=== PATIENT | male | born 1960 | race Caucasian/White ===

== ENCOUNTER 2018-05-01 14:53 | Outpatient (CLI) | payer OTHER ==
--- NOTE | 2018-05-01 21:50 | MRI Report ---
Reason: LUMBAR RADICULOPATHY Procedure Date: 05/01/2018 Accession Number: [id number] / [id number] Procedure: MRI - Lumbar Spine W/O CPT Code: FULL RESULT: EXAM: MRI LUMBAR SPINE WITHOUT CONTRAST EXAM DATE: 05/01/2018 03:34 PM. CLINICAL HISTORY: Lumbar radiculopathy. COMPARISON: Lumbar radiograph 01/21/2018. TECHNIQUE: Multiplanar, multisequence T1-weighted and fluid-sensitive sequences of the lumbar spine from T12 to S1 without contrast. Other: None. FINDINGS: Spinal Canal: The conus terminates at L1-L2. The conus medullaris and cauda equina are unremarkable. Alignment: No scoliosis or spondylolisthesis. Bone Marrow: 6 [id number] lumbar type vertebrae demonstrated. Transitional lumbosacral anatomy with a lumbarized S1. Left S1 transverse process fused with the sacral ala. No gross fractures or bone lesions. No bone marrow replacement. Disk Levels/Facets: T12-L1: Disk desiccation. No significant canal or foraminal narrowing. L1-L2: Disk desiccation. Mild facet arthropathy. No significant canal or foraminal narrowing. L2-L3: Annular bulge. Mild facet arthropathy. Mild canal narrowing. No significant foraminal narrowing. L3-L4: Mild facet arthropathy. Annular bulge. No significant canal narrowing. Mild foraminal narrowing. L4-L5: Disk desiccation. Annular bulge. Bilateral facet arthropathy. Mild to moderate bilateral foraminal narrowing. Mild subarticular narrowing. Mild canal narrowing. L5-S1: Bilateral facet arthropathy. Annular bulge. Mild foraminal narrowing. No apparent impingement of the L5 or S1 nerve roots. Musculature: Normal. No edema or fatty atrophy. Other: The partially visualized retroperitoneum is unremarkable. IMPRESSION: 1. Transitional lumbosacral anatomy with a lumbarized S1. 2. At L2-L3, annular bulge with mild canal narrowing. 3. At L3-L4, mild foraminal narrowing secondary to annular bulge. 4. At L4-L5, mild canal narrowing. Mild subarticular narrowing. Mild to moderate bilateral foraminal narrowing. No apparent impingement of the L4 or L5 nerve roots. 5. At L5-S1, mild foraminal narrowing. Comment: The following findings are so common in adults without low back pain that while we report their presence, they must be interpreted with caution and in the context of the clinical situation. (Reference Tyron et al, Spine 2001) Prevalence of findings in patients without low back pain: Disk degeneration (any evidence): 92% Disk desiccation/T2 signal loss: 83% Disk height loss: 56% Disk bulge: 64% Disk protrusion: 32% Annular tear/high intensity zone: 38% RADIA
== END 2018-05-01 14:54 | disposition home or self-care (01) ==
LOC: DI 14:53
PROVIDERS: ATTEND Physician Assistant Medical
DX: M51.16 Intervertebral disc disorders with radiculopathy, lumbar region (principal); M48.061 Spinal stenosis, lumbar region without neurogenic claudication
CPT/HCPCS: 72148

== ENCOUNTER 2018-10-14 20:22 | Emergency (ER) | payer OTHER ==
[2018-10-14] MEDS ORDERED: BUFFERED LIDOCAINE 10 ML SYRINGE SUBQ STA (21:36)
--- NOTE | 2018-10-14 21:36 | ED Physician Documentation ---
PD HPI LOWER EXT INJURY - Stated complaint Stated Complaint: LFT KNEE LAC - Chief complaint Chief Complaint: Laceration - History obtained from History obtained from: Patient - History of Present Illness PD HPI LOW EXT INJURY LOCATION: Left, Lower leg Type of injury: Laceration Where injury occurred: Home Timing - onset: Today Timing - duration: Hours (1) Timing - details: Abrupt onset - Additional information Additional information: This is a 58-year-old man who was bringing groceries in from the car in the garage she kneeled down and a piece of broken glass that must of been left over from some prior episode went into his left knee. This happened about an hour prior to presentation he said he could feel it with his tweezers but he could not grab a hold of it to pull it out because it was just too painful. His last tetanus immunization was greater than 5 years ago. He works as a [employer]. Review of Systems Skin: reports: Laceration (s) PD PAST MEDICAL HISTORY - Past Medical History Past Medical History: Yes Cardiovascular: Hypertension - Past Surgical History Past Surgical History: No - Present Medications Home Medications: Ambulatory Orders Medication Instructions Recorded Confirmed Aspirin [Aspir 81] 81 mg PO 03/12/13 03/12/13 Lisinopril [Prinivil] 5 mg PO 03/12/13 03/12/13 Cephalexin [Keflex] 500 mg PO Q6H #20 capsule 10/14/18 Metoprolol Tartrate 25 mg PO DAILY 10/14/18 10/14/18 - Allergies Allergies/Adverse Reactions: Allergies Allergy/AdvReac Type Severity Reaction Status Date / Time No Known Drug Allergies Allergy Verified 10/14/18 20:28 - Social History Does the pt smoke?: No Smoking Status: Never smoker Does the pt drink ETOH?: Yes Does the pt have substance abuse?: No - Immunizations Immunizations are current?: No Immunizations: TDAP >10years/unknown - POLST Patient has POLST: No PD ED PE NORMAL - Vitals Vital signs reviewed: Yes - General General: Alert and oriented X 3, No acute distress, Well developed/nourished - Derm Derm: Other (There is a laceration that measures less than a centimeter just lateral to the patellar tendon in the left knee. Just the lightest touch proximally elicited significant pain from what he describes as a foreign body.) - Neuro Neuro: Alert and oriented X 3 - Psych Psych: Normal mood, Normal affect Results - Vitals Vitals: Vital Signs - 24 hr 10/14/18 20:25 Temperature 36.4 C L Heart Rate 76 Respiratory 15 Rate Blood Pressure 152/92 H O2 Saturation 97 Oxygen O2 Source Room air Procedures - FB removal FB location: Subcutaneous FB removal preparation: Local anesthesia-specify (1% lidocaine) Removal method: Foreceps FB removal aftercare: No complications, Patient tolerated well, Removed successfully PD MEDICAL DECISION MAKING - ED course ED course: Foreign body of a small piece of glass without any difficulty. The rest of the wound was probed and I did not feel any further glass in there. Not to start him on antibiotics but will give a back-up prescription if it starts to look infected and signs and symptoms were discussed with him. Ibuprofen if needed for pain. Departure - Departure Disposition: 01 Home, Self Care Clinical Impression: Foreign body (FB) in soft tissue Condition: Good Instructions: ED Foreign Body Soft Tissue Removed Follow-Up: doctor,your [Other] (Follow-up if not improving or if you feel like there is still embedded foreign body.) Prescriptions: Cephalexin [Keflex] 500 mg PO Q6H #20 capsule Comments: Keep the wound clean and covered. There is no need for antibiotics unless that showing signs of infection in the next 48 hours. It will get red and be a little tender and may have some yellow bloody looking discharge. Take ibuprofen or Tylenol if needed for pain. Avoid kneeling directly on that wound.
[2018-10-14] MEDS ORDERED: TETANUS/DIPHTHERIA/PERTUSSIS 0.5 ML SYRINGE IM ONE (21:38)
[2018-10-14] MEDS ORDERED: BACITRACIN OINT TOP STA (22:18)
[2018-10-14 22:35] VITALS: BP 146/84
== END 2018-10-14 22:35 | disposition home or self-care (01) ==
LOC: ED 20:22
DX: S81.022A Laceration with foreign body, left knee, initial encounter (principal); W25.XXXA Contact with sharp glass, initial encounter; W45.8XXA Other foreign body or object entering through skin, initial encounter; Y93.89 Activity, other specified; Y92.008 Other place in unspecified non-institutional (private) residence as the place of occurrence of the external cause; I10 Essential (primary) hypertension
CPT/HCPCS: 10120; 90471; 90715; 99283; A9270

== ENCOUNTER 2019-04-01 08:00 | Outpatient (CLI) | payer OTHER | END 2019-04-01 23:59 | disposition home or self-care (01) | LOC: LAB.R 08:00 | PROVIDERS: ATTEND Physician Assistant Medical | DX: Z79.891 Long term (current) use of opiate analgesic (principal) | CPT/HCPCS: 80306; 80345; 81599 ==

== ENCOUNTER 2019-04-30 09:33 | Outpatient (CLI) | payer OTHER ==
--- NOTE | 2019-04-30 18:42 | XRAY Report ---
Reason: LEFT LATERAL EPICONDYLITIS Procedure Date: 04/30/2019 Accession Number: [id number] / [id number] Procedure: WCP - Elbow 2 View LT CPT Code: Final Report FULL RESULT: EXAM: LEFT ELBOW RADIOGRAPHY EXAM DATE: 04/30/2019 09:33 AM. CLINICAL HISTORY: Strained elbow 2 weeks ago lifting heavy TV. Continued pain. Concern for lateral epicondylitis. COMPARISON: None. TECHNIQUE: 2 views. FINDINGS: Bones: Normal. No fractures or bone lesions. Joints: Normal. No effusion. No subluxation. Soft Tissues: Normal. No soft tissue calcification. IMPRESSION: Normal elbow radiography. RADIA
== END 2019-04-30 23:59 | disposition home or self-care (01) ==
LOC: DI.WCP 09:33
PROVIDERS: ATTEND Family Medicine
DX: M77.12 Lateral epicondylitis, left elbow (principal)

== ENCOUNTER 2019-09-11 18:26 | Outpatient (CLI) | payer OTHER | END 2019-09-11 18:27 | disposition home or self-care (01) | LOC: COV 18:26 | PROVIDERS: ATTEND Family Medicine | DX: R50.9 Fever, unspecified (principal); R05 Cough; J02.9 Acute pharyngitis, unspecified | CPT/HCPCS: 81599 ==

== ENCOUNTER 2020-10-21 08:00 | Outpatient (CLI) | payer OTHER ==
[2020-10-21 12:08] LABS: BASOPHILS # (AUTO) 0.1 10^3/uL (0.0-0.1); BASOPHILS % (AUTO) 1.5 %; EOSINOPHILS # (AUTO) 0.3 10^3/uL (0.0-0.7); EOSINOPHILS % (AUTO) 3.8 %; HCT - HEMATOCRIT 43.4 % (42.0-52.0); HGB - HEMOGLOBIN 14.8 g/dL (14.0-18.0); LYMPHOCYTES # (AUTO) 1.9 10^3/uL (1.5-3.5); LYMPHOCYTES % (AUTO) 24.4 %; MEAN CORPUSCULAR HEMOGLOBIN 32.8 pg (27.0-31.0); MEAN CORPUSCULAR HGB CONC 34.1 g/dL (32.0-36.0); MEAN CORPUSCULAR VOLUME 96.2 fL (80.0-94.0); MEAN PLATELET VOLUME 9.1 fL (7.4-11.4); MONOCYTES # (AUTO) 0.7 10^3/uL (0.0-1.0); MONOCYTES % (AUTO) 8.9 %; NEUTROPHILS # (AUTO) 4.8 10^3/uL (1.5-6.6); NEUTROPHILS % (AUTO) 60.9 %; PLT - PLATELET COUNT 299 10^3/uL (130-450); RED BLOOD COUNT 4.51 10^6/uL (4.70-6.10); WHITE BLOOD COUNT 7.9 x10^3/uL (4.8-10.8)
[2020-10-21 12:20] LABS: ALBUMIN 4.4 g/dL (3.2-5.5); ALBUMIN/GLOBULIN RATIO 1.4 (1.0-2.2); ALKALINE PHOSPHATASE 59 IU/L (42-121); ALT ALANINE AMINOTRANSFERASE 16 IU/L (10-60); AST ASPARTATE AMINOTRANSFERASE 18 IU/L (10-42); BILIRUBIN,TOTAL 1.4 mg/dL (0.2-1.0); BUN - BLOOD UREA NITROGEN 16 mg/dL (6-20); CALCIUM 9.2 mg/dL (8.5-10.3); CARBON DIOXIDE - CO2 25 mmol/L (21-32); CHLORIDE 104 mmol/L (101-111); CHOL/HDL RATIO 3.2 (<5.0); CHOLESTEROL 206 mg/dL; GFR - MDRD 77 (>89); GLUCOSE 105 mg/dL (70-100); HDL CHOLESTEROL 64 mg/dL; LDL CHOLESTEROL,CALCULATED 130 mg/dL; POTASSIUM 4.6 mmol/L (3.5-5.0); SODIUM 138 mmol/L (135-145); TOTAL PROTEIN 7.5 g/dL (6.7-8.2); TRIGLYCERIDES 59 mg/dL; VLDL CHOLESTEROL 12 mg/dL
[2020-10-21 12:26] LABS: THYROID STIMULATING HORMONE 1.13 uIU/mL (0.34-5.60)
== END 2020-10-21 23:59 | disposition home or self-care (01) ==
LOC: LAB.WCP 08:00
PROVIDERS: ATTEND Physician Assistant Medical
DX: Z00.00 Encounter for general adult medical examination without abnormal findings (principal); I10 Essential (primary) hypertension; Z12.5 Encounter for screening for malignant neoplasm of prostate
CPT/HCPCS: 36415; 80053; 80061; 83721; 84153; 84443; 85025

== ENCOUNTER 2020-12-24 07:09 | Outpatient (CLI) | payer OTHER ==
[2020-12-24 12:30] LABS: PSA FREE 0.6 ng/mL (0.16-2.81)
[2020-12-24 12:32] LABS: PSA TOTAL 8.65 ng/mL (0.000-2.000)
== END 2020-12-24 07:10 | disposition home or self-care (01) ==
LOC: LAB.N 07:09
PROVIDERS: ATTEND Physician Assistant Medical
DX: R97.20 Elevated prostate specific antigen [PSA] (principal)
CPT/HCPCS: 36415; 84153; 84154

== ENCOUNTER 2021-02-24 07:04 | Outpatient (CLI) | payer OTHER ==
[2021-02-24 11:55] LABS: PSA FREE 0.627 ng/mL (0.16-2.81)
[2021-02-24 11:57] LABS: PSA TOTAL 10.053 ng/mL (0.000-2.000)
== END 2021-02-24 07:05 | disposition home or self-care (01) ==
LOC: LAB.N 07:04
PROVIDERS: ATTEND Urology
DX: R97.20 Elevated prostate specific antigen [PSA] (principal)
CPT/HCPCS: 36415; 84153; 84154

== ENCOUNTER 2021-10-04 07:06 | Outpatient (CLI) | payer OTHER ==
[2021-10-04 12:28] LABS: PSA FREE 0.69 ng/mL (0.16-2.81)
[2021-10-04 12:29] LABS: PSA TOTAL 8.46 ng/mL (0.000-2.000)
== END 2021-10-04 07:07 | disposition home or self-care (01) ==
LOC: LAB.N 07:06
PROVIDERS: ATTEND Urology
DX: R97.20 Elevated prostate specific antigen [PSA] (principal)
CPT/HCPCS: 36415; 84153; 84154

== ENCOUNTER 2022-11-25 10:08 | Outpatient (CLI) | payer OTHER ==
--- NOTE | 2022-11-27 13:26 | MRI Report ---
PROCEDURE: ANKLE WO - LT INDICATIONS: LEFT ANKLE PAIN TECHNIQUE: Noncontrast sagittal T1 spin echo and T2 fast spin echo with fat saturation, axial proton density fas t spin echo and T2 fast spin echo with fat saturation, coronal T1 spin echo and T2 fast spin echo wit h fat saturation through the ankle/hindfoot. COMPARISON: None. FINDINGS: Image quality: Excellent. Bones and joints: Mild midfoot and hindfoot joint osteoarthritic changes are seen with joint space na rrowing and subchondral sclerosis. Mild marrow edema involving posterior calcaneus near Achilles tend on insertion is seen without discrete fracture line. No other area of abnormal marrow signal. No hind foot coalitions. No osteochondral injuries of the talar dome. No pathologic joint effusions. Medial structures: The posterior tibialis, flexor digitorum longus, and flexor hallucis longus tendo ns are intact. The posterior tibial neurovascular bundle appears normal within the tarsal tunnel, wi thout extrinsic mass effect. The deep layer (anterior and posterior tibiotalar ligaments) and superf icial layer (tibionavicular, tibiospring, and tibiocalcaneal ligaments) of the deltoid ligament appea r normal. The spring ligament components (superomedial calcaneonavicular, medioplantar oblique calca neonavicular, and inferoplantar longitudinal ligaments) are intact. Lateral structures: The anterior talofibular, calcaneofibular, and posterior talofibular ligaments a ppear intact. More superiorly, the anterior and posterior tibiofibular ligaments appear normal, as i s the intermalleolar ligament. The tibiofibular syndesmosis is normal in width at 2 mm or less. The peroneus longus and brevis tendons demonstrate normal location and morphology. Adjacent bony perone al tubercle and retrotrochlear prominence are normal in size. The sinus tarsi demonstrates normal fa tty signal, without edema, fibrosis, or cyst formation. Visualized sinus tarsi components (cervical ligament, interosseous talocalcaneal ligament, roots of the inferior extensor retinaculum) appear nor mal. Anterior structures: The tibialis anterior, extensor hallucis longus, and extensor digitorum longus tendons appear intact. Posterior and plantar structures: There is marked thickening involving distal 8 cm segment of Stearns s tendon extending to its posterior calcaneal insertion with intrasubstance T2 hyperintense signal an d surrounding soft tissue edema and small amount of fluid. Medial and lateral bands of the plantar fa scia are of normal thickness. No abductor digiti quinti muscle atrophy to suggest Moon neuropathy. IMPRESSION: 1. Moderate tendinosis and intrasubstance partial thickness tear involving distal radial centimeters segment of Achilles tendon extending to its posterior calcaneal insertion. No full-thickness Achilles tendon rupture. 2. Mild edema involving posterior calcaneus at Achilles tendon insertion suggestive of mild avulsion injury. No fracture or dislocation. No suspicious bony lesions or osteochondral injuries of talar dom e. No significant joint effusion. 3. Rest of the ankle tendons and ligaments are grossly intact. Reviewed by: Jasvir Simon MD on 11/27/2022 1:25 PM PDT Approved by: Jasvir Simon MD on 11/27/2022 1:25 PM PDT Station ID: [id number]
== END 2022-11-25 10:09 | disposition home or self-care (01) ==
LOC: DI 10:08
PROVIDERS: ATTEND Physician Assistant Medical
DX: S86.012A Strain of left Achilles tendon, initial encounter (principal)